=== PATIENT | male | born 1980 | race Caucasian/White ===

== ENCOUNTER 2020-03-09 08:42 | Day surgery (SDC) | payer BC ==
--- NOTE | 2020-03-08 13:37 | HP ---
DATE OF SURGERY: 03/09/2020 HISTORY OF PRESENT ILLNESS: The patient presented with some constant discomfort in his abdominal area, painful and it is stabbing in nature. He noticed a bulge in the right side back in November. He said it was golf ball size until this past and it was the size of a grapefruit. He said the bulge was in the right groin area. PAST MEDICAL HISTORY: None. PAST SURGICAL HISTORY: Left inguinal hernia repair. ALLERGIES: PENICILLIN. MEDICATIONS: None. FAMILY HISTORY: None reported. SOCIAL HISTORY: Smokes one and a half packs a day, denies alcohol. REVIEW OF SYSTEMS: CONSTITUTIONAL: Denies fever or chills. CHEST: Denies shortness of breath. CVS: Denies chest pain. ABDOMEN: Denies nausea, vomiting, diarrhea, constipation or rectal bleeding. Reports right inguinal hernia pain. INTEGUMENTARY: Negative. PHYSICAL EXAMINATION: GENERAL: No acute distress. CHEST: Nonlabored. No shortness of breath. CVS: Regular rate and rhythm. ABDOMEN: Soft, nontender to palpation. Reducible right inguinal hernia. EXTREMITIES: No edema. NEUROLOGIC: Alert. PSYCHIATRIC: Appropriate. IMPRESSION: Right inguinal hernia symptomatic. PLAN: Right inguinal hernia repair with mesh with Dr. Ancelmo Olivier. As dictated by Marleni Marte NP.
[~2020-03-09 08:42] MED LIST: CLINDAMYCIN-D5W 900 MG/50 ML*** 900 MG/50 ML BAG IV STA; Cleocin Phosphate IV 600 MG/4 ML ONE; Lactated Ringers 1,000 ML IV ONE; Lactated Ringers 1,000 ML IV SCH; Sensorcaine 0.25% 10 ML ONE
[2020-03-09] MEDS ORDERED: CLINDAMYCIN-D5W 900 MG/50 ML*** 900 MG/50 ML BAG IV ONE (08:45)
[2020-03-09] MEDS ORDERED: Lactated Ringers 1,000 ML IV ONE (08:45)
[2020-03-09] MEDS ORDERED: Versed 50 MG/ 10 Ml MDV*** 50 MG in Sodium Chloride 0.9% 250 ML 240 ML IV PRN (09:09)
[2020-03-09] MEDS ORDERED: Versed 2 MG/2 ML Injection ONE (09:10)
[2020-03-09] MEDS ORDERED: VERSED 5 MG/5 ML IV ONE ×2 (09:18→09:21)
[2020-03-09] MEDS ORDERED: DIPRIVAN 200 MG/20 ML IV ONE (09:19)
[2020-03-09] MEDS ORDERED: SUBLIMAZE 100 MCG/2 ML ONE ×3 (09:19→11:12)
[2020-03-09] MEDS ORDERED: DEMEROL 50 MG ONE (10:51)
[2020-03-09] MEDS ORDERED: VERSED 5 MG/5 ML ONE (10:56)
[2020-03-09] MEDS ORDERED: Zofran 4 MG/2 ML VIAL ONE (11:11)
[2020-03-09] MEDS ORDERED: TORAdol 30 mg Injection ONE (11:11)
[2020-03-09] MEDS ORDERED: MORPHINE SULFATE 10 MG/ML ONE (11:21)
[2020-03-09] MEDS ORDERED: NORCO 5/325 MG PO PRN ×2 (11:24→12:35)
[2020-03-09 12:59] VITALS: PULSE 78
[2020-03-09 13:01] VITALS: O2SAT 97
[2020-03-09 13:16] VITALS: BP 151/78
--- NOTE | 2020-03-10 08:41 | OP ---
SURGERY DATE/TIME: 03/09/2020 0940 PREOPERATIVE DIAGNOSIS: Right inguinal hernia. POSTOPERATIVE DIAGNOSIS: Right inguinal hernia indirect. PROCEDURE: Right inguinal herniorrhaphy with mesh. SURGEON: Ancelmo Olivier M.D. ANESTHESIA: General with tap block. COMPLICATIONS: None. CONDITION: Stable. INDICATION: The patient requiring herniorrhaphy of symptomatic moderate sized right inguinal hernia. DESCRIPTION OF PROCEDURE: Taken to surgery. General anesthetic. Routine prep and drape. Time out performed. Limited curvilinear incision was marked. Tap blocks had already been done. 10 cc of 0.25% Marcaine placed in the skin subcu and field. External oblique opened along direction of its fibers attenuated. There was 3 inch indirect sac. It was fiber-like and it was sutured with #0 Prolene. There was a small lipoma taken off. The internal ring was wide had a V-repair the internal ring with two sutures above the internal ring were placed sending this down, this felt fine. Ilioinguinal nerve, iliohypogastric were able to be preserved. A 1x4 mesh was placed in the floor secured with 0 Prolene throughout in Andrae's ligament-type fashion. Internal ring was one clamp tight. Hemostasis satisfactory. External oblique closed with 0 Vicryl. Hema fascia closed with 3-0 Vicryl. Skin closed with 4-0 Vicryl. Steri-Strips applied. Sterile dressing applied. The patient tolerated the procedure satisfactory. Testicle was in the right scrotum at the termination of the procedure in good position.
== END 2020-03-09 13:19 | disposition home or self-care (01) ==
LOC: SDC 08:42
PROVIDERS: ATTEND Surgery
DX: K40.90 Unilateral inguinal hernia, without obstruction or gangrene, not specified as recurrent (principal)
CPT/HCPCS: 49505; C1781; 64486; 76937; 76942; J1885; J2175; J2250; J2270; J2405; J2704; J3010